=== PATIENT | male | born 1950 | race Caucasian/White ===

== ENCOUNTER 2023-05-10 16:18 | Emergency (ER) | payer OTHER, MEDICARE ==
[~2023-05-10] VITALS: Ht 185.4 cm; Wt 59.0 kg
[~2023-05-10 16:18] MED LIST: ADULT ASPIRIN R81 MG PO; LIPITOR40 MG PO
[2023-05-10] MEDS ORDERED: TOPROL XL25 MG PO (16:28)
[2023-05-10] MEDS ORDERED: FINASTERIDE5 MG PO (16:28)
[2023-05-10 16:46] LABS: BASOPHILS 0.2 % (0-2); HEMATOCRIT 31.8 % (35.0-50.0); HEMOGLOBIN 10.7 g/dL (12.0-18.0); LYMPHOCYTES 4.8 % (24-44); MCH 31.4 (27-36); MCHC 33.7 g/dl (30-36); MCV 93.2 fl (81-99); MONOCYTES 12.1 % (0-12); NEUTROPHILS 82.9 % (39-80); PLATELET COUNT 187 K/uL (140-440); RBC 3.41 M/ul (4.3-5.7); RDW 13.8 (10.5-15.0)
[2023-05-10 17:02] LABS: ALBUMIN 3.1 g/dL (3.4-5.0); ALBUMIN/GLOBULIN RATIO 0.91 (1.1-2.4); ANION GAP 10.4 (7-21); BILIRUBIN, TOTAL 2.7 ng/dL (0.2-1.0); BUN/CREATININE RATIO 11.02 (6.0-28.6); CALCIUM 8.5 mg/dL (8.5-10.1); CREATININE, SERUM 1.36 mg/dL (0.70-1.30); POTASSIUM 4.4 mmol/L (3.5-5.1); PROTEIN, TOTAL 6.5 g/dL (6.4-8.2)
[2023-05-10 17:05] LABS: LACTIC ACID, BLOOD 1.6 mmol/L (0.4-2.0)
[2023-05-10 17:22] LABS: INFLUENZA B NAA NEGATIVE (NEGATIVE); RESPIRATORY SYNCYTIAL VIR NAA NEGATIVE (NEGATIVE)
[2023-05-10] MEDS ORDERED: PAXLOVID 300-11 EACH PO (17:48)
[2023-05-10 18:13] VITALS: BP 91/67
== END 2023-05-10 18:15 | disposition home or self-care (01) ==
LOC: ED 16:18
PROVIDERS: Emergency Medicine
DX: U07.1 COVID-19 (principal); D64.9 Anemia, unspecified; Z86.73 Personal history of transient ischemic attack (TIA), and cerebral infarction without residual deficits; Z79.82 Long term (current) use of aspirin; Z79.899 Other long term (current) drug therapy
CPT/HCPCS: 36415; 71045; 80053; 83605; 85025; 85060; 87502; C9803; U0002